=== PATIENT | female | born 1965 | race Caucasian/White ===

== ENCOUNTER 2017-09-19 12:16 | Outpatient (CLI) | payer OTHER ==
[2017-09-19 13:12] LABS: Hemoglobin 13.7 g/dL (12.0-16.0); Mean Corpuscular HGB CONC 33.3 g/dL (32.0-36.0); Mean Corpuscular Hemoglobin 30.2 pg (27.0-31.0); Mean Corpuscular Volume 90.7 fl (81.0-99.0); Mean Platelet Volume 7.3 fL (7.4-10.4); Platelet Count 347 thou/uL (130-400); RBC Distribution Width 12.6 % (11.5-14.5); Red Blood Cell (RBC) Count 4.54 mill/uL (4.20-5.40); White Blood Cell (WBC) Count 6.2 thou/uL (4.8-10.8)
[2017-09-19 13:17] LABS: BHCG - Serum Negative (NEGATIVE); Pregs Control Background? CLEAR/WHITE (CLR/WHITE); Pregs Control Bar Appear? YES (CONTROL BAR)
== END 2017-09-19 12:17 | disposition home or self-care (01) ==
LOC: LABBT 12:16
PROVIDERS: ATTEND Obstetrics & Gynecology
DX: Z01.812 Encounter for preprocedural laboratory examination (principal); D25.9 Leiomyoma of uterus, unspecified; N92.0 Excessive and frequent menstruation with regular cycle; R10.31 Right lower quadrant pain
CPT/HCPCS: 84703; 85027; 86850; 86900; 86901

== ENCOUNTER 2017-09-24 05:47 | Inpatient (IN) | payer OTHER ==
[2017-09-19 12:27] VITALS: BMI 27.9
--- NOTE | 2017-09-21 21:11 | HP ---
REASON FOR ADMISSION: Menorrhagia and fibroids, status post endometrial ablation. SCHEDULED PROCEDURE: Total laparoscopic hysterectomy with right salpingo-oophorectomy and left salpi ngectomy. HISTORY OF PRESENT ILLNESS: Ms. 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 She has had an endometrial ablation in the past and has persistent bleeding and menorrha yulia as well as pain from her fibroids. Her fibroids enlarged to the point where they are pushing on her bladder and causing discomfort with intercourse. She desires definitive surgical management. Jose brooks also has a long history of right lower quadrant pain and desires prophylactic oophorectomy on the r ight. 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 PAST MEDICAL HISTORY: Denies. PAST SURGICAL HISTORY: Ablation. ALLERGIES: Denies. MEDICATIONS: Indomethacin. SOCIAL HISTORY: Denies tobacco, alcohol, and IV drug abuse. FAMILY HISTORY: Noncontributory. REVIEW OF SYSTEMS: Noncontributory. PHYSICAL EXAMINATION: GENERAL: White female in no acute distress. VITAL SIGNS: 5 feet 6, 170, BMI 27, blood pressure 130/82. HEENT: Within normal limits. LUNGS: Clear to auscultation bilaterally. HEART: Regular rhythm. BREASTS: No masses bilaterally. ABDOMEN: Soft, nontender, no rebound or guarding. PELVIC: Vulva without lesions. Vagina without discharge. Cervix parous. Uterus 14 weeks size with fundal fibroids on exam. Adnexa without masses being able to be appreciated. LABORATORY STUDIES: Ultrasound reveals a uterus measuring 14 x 4 x 9.9 x 8 cm with fundal fibroids m easuring 7 and 6 cm respectively and endometrial thickness of 6 mm, normal size right and left adnexa without free fluid. IMPRESSION: Persistent dysmenorrhea and menorrhagia, status post endometrial ablation on multiple le iomyoma uteri. PLAN: Discussed with patient options. The patient strongly desires laparoscopic hysterectomy. Risk and benefits of morselization was discussed with patient. We will plan on proceeding with total lap aroscopic hysterectomy with right salpingo-oophorectomy. Plan on placing the specimen into an abdomi nal retrieval bag and pulling against the abdomen at the level of a Pfannenstiel incision and making in approximately 2-3 cm incision and morcellating the uterus and fibroids out through that incision. The patient understands the possible need to proceed to abdominal procedure because of size and bulk iness of the uterus as well as the regular risks of surgery including bleeding, infection, and damage to pelvic organs. We will administer appropriate antibiotic and DVT prophylaxis. Anticipate 22-kira r observation status.
[2017-09-24] MEDS ORDERED: CEFAZOLIN/Water 2 GM/20 ML SYRINGE ONE (06:11)
[2017-09-24] MEDS ORDERED: Fentanyl 100 MCG/2 ML VIAL ONE ×2 (06:48→10:39)
[2017-09-24] MEDS ORDERED: HYDROmorphone 0.5 MG/0.5 ML SYRINGE ONE (06:48)
[2017-09-24] MEDS ORDERED: Midazolam HCl 2 mg/2 ml Vial ONE (06:48)
[2017-09-24] MEDS ORDERED: Bupivacaine/Epinephrine 0.25% 30 ML VIAL ONE (07:04)
[2017-09-24] MEDS ORDERED: Promethazine HCl 25 MG/ML VIAL IM PRN ×2 (11:17→11:48)
[2017-09-24] MEDS ORDERED: Ondansetron HCl/PF 4 MG/2 ML Vial IVP PRN ×2 (11:17→11:48)
[2017-09-24] MEDS ORDERED: Promethazine HCl 25 MG/ML VIAL SLOW IVP PRN (11:17)
[2017-09-24] MEDS ORDERED: Morphine 4 MG/ML Carpuject SLOW IVP PRN ×2 (11:48→12:10)
[2017-09-24] MEDS ORDERED: Simethicone Chewable 80 MG TAB PO PRN (11:48)
[2017-09-24] MEDS ORDERED: Zolpidem Tartrate 5 MG TAB PO PRN (11:48)
[2017-09-24] MEDS ORDERED: Ketorolac Tromethamine 30 MG/ML VIAL IVP SCH (12:00)
[2017-09-24] MEDS ORDERED: Acetaminophen 1,000 MG in Premix Bag 1 BAG IVPB SCH (12:00)
--- NOTE | 2017-09-24 12:49 | OP ---
DATE OF OPERATION: 09/24/2017 PREOPERATIVE DIAGNOSES: Large uterine fibroids, dysmenorrhea, pelvic pain, right lower quadrant. POSTOPERATIVE DIAGNOSIS: Large uterine fibroids, dysmenorrhea, pelvic pain, right lower quadrant, pl us right ovarian endometriosis. PROCEDURE: Total laparoscopic hysterectomy, right salpingo-oophorectomy, left salpingectomy and ext ra-abdominal morselization. SURGEON: Chad Vilchis M.D. WASH HOUSE SUPERVISOR: Dionicio Hernandez D.O. ANESTHESIA: General endotracheal. ESTIMATED BLOOD LOSS: 200 mL. MEDICATIONS: Two grams Ancef preincision. DVT PROPHYLAXIS: SCDs. OPERATIVE FINDINGS: 1. Approximately 14-16 week sized bulky uterus with 2 large fibroids in the fundus side by side. 2. Mild to moderate amount of endometriosis on the surface of the right ovary. 3. Normal appearing left ovary. 4. Hemostasis with clear urine. 5. Counts correct at the end of the procedure. DISPOSITION: To the recovery room in good condition. DESCRIPTION OF OPERATIVE PROCEDURE: After obtaining proper informed consent, the patient was taken t o the operating room where general endotracheal anesthesia was achieved without difficulty. The allie ent was prepped and draped in dorsal lithotomy position in [place] stirrups. Side hand speculum placed in vagina. The cervix was identified and grasped with tooth tenaculum. Uterus sounded to 10 cm. R NAHID manipulator with a 3.5 vaginal package line relief operator and 8 cm occluding obturator was placed without difficu lty. Garcia catheter was placed. Speculum and tenaculum removed. Religion Department Chair changed his gloves and tu rned his attention to the abdominal portion of the procedure. Five mL of Marcaine was injected at th e superior aspect of the umbilicus and a 12 mm skin incision made. Veress needle placed inside the a bdominal cavity. Confirmation of entry into the peritoneal cavity via saline drop test. Insufflatio n carried out with carbon dioxide to a max pressure of 15, volume approximately 3.5 liters. A 12 mm trocar was then placed and confirmation of entry into the peritoneal cavity without trauma to underly ing viscera was noted with the laparoscopic camera. Right and left lateral trocars for da Parvez robo t 8 mm were placed under direct visualization and an 11 mm mechanic assistant port in the right upper quadrant was placed. The patient was placed in steep Trendelenburg position and the da Parvez robot was docke d with monopolar scissors in the right hand and fenestrated bipolar forceps in the left. Uterus was noted to be large and bulky, but was able to be manipulated around for care. On the patient's right, the infundibulopelvic ligament was identified and noted to be well away from the sidewall and coagul ated at the level of the ovary. After the IP was coagulated and transected, coagulation transected a nd was taken to the broad and the round, and then to the cardinal ligaments down to just above the le kellie of the internal cervical os. The uterus was mobilized anteriorly. The vesicouterine peritoneum was identified. The vaginal package line relief operator on the JENIFFER was identified and incised sharply and dissected off the lower uterine segment, cervix, and upper vagina. Coagulation and transection were carried ou t at the level of the uterine vessels on the patient's right, marked varicosities secondary to the p atpati's large fibroids were noted which rendered some difficulty in this; however, it was accomplish ed, sustained midline against the cervix well away from the pelvic side wall and the ureter. After t his was accomplished, attention was turned to the patient's left where the identical procedure was ca rried out except on this side, the fallopian tube was identified, the mesosalpinx coagulated and monroy sected and excised and the tube pulled out through the mechanic assistant port. Then, the utero-ovarian ligam ent was coagulated and transected, carried to the broad, the round, and the cardinals down to just ab ove the level of the internal cervical os. Completion of the incision to the vesicouterine peritoneu m anteriorly was carried out. Skeletonization of the uterine vessels carried out, again marked varic osities were encountered on this side. Good hemostasis was achieved, maintaining midline discipline and staying away from the lateral sidewall and ureter. Posteriorly, the vaginal package line relief operator was ident ified and the peritoneum incised sharply. Posteriorly, the midline at 6 o'clock and extended from 6 to 3 and from 6 to 9. Anteriorly, good dissection of the bladder off the upper vagina was identified , the incision was made which was carried down into the vagina at 12 o'clock and was extended from 12 to 9, 12 to 3, 6 to 9 and 6 to 3, achieving hemostasis with bipolar coagulation as these pedicles we re taken down. Good hemostasis was noted along the margins of the cuff after removal of the cervix f rom the upper vagina. The specimen was large enough that it could not be passed out through the vagi na. The JENIFFER manipulator obturator balloon was taken down and the specimen was pulled off of this an d placed in the upper abdomen for future retrieval. The applied medical morselization retrieval bag was placed in the vagina, tied in the middle with a silk suture and then the vagina occluded to maint ain pneumoperitoneum. Using a Stratafix 2-0 PDS the vagina was closed in a running continuous manner from right to left, achieving good hemostasis. The bladder was back filled to identify its location and closure was careful to stay away from this. Good hemostasis was noted after closure and the ped icles were irrigated and noted be hemostatic. FloSeal was applied upon all surfaces and good hemosta sis was noted. At this point in time, the closure suture on the morselization bag was cut in the mid dle and removed. The uterine specimen was placed into the retrieval bag and a [address] d suprapubically in the midline 2 cm above the symphysis pubis. The retrieval straining on the clement lization bag was pulled out through this trocar. The da Parvez instruments were then removed. The da Parvez undocked and laparoscopic trocars except for the 12 mm suprapubic were all removed. The patie nt was flattened and the incision at the level of the 12 mm trocar was extended to approximately 4 cm in greatest length through the skin and carried down to the fascia which was incised sharply latera lly with curved Kurtz scissors enlarging the incision. The retrieval string and the mouth of the mors elization bag were pulled out through this incision and a small South O was placed inside of it. Th e applied medical morselization bag was then pulled out through the middle of the South O and rolled down to facilitate morselization of the uterus. A hard plastic protective ring was placed inside of this and the uterus was grasped and morcellated out in approximately 270 degree rotating technique u sing an 11 blade and taking care to avoid trauma to the underlying viscera. This procedure was zachariah ed out for approximately 45-50 minutes, completely removing the specimen, including right tube and ov kimberly as well as the uterus. The retrieval bag was pulled out. The South O was left inside. Inspect ion of the pelvis was carried out. Suction irrigation and blood from the surgical procedure were suc tioned out and inspection of the surgical field through the 4 cm incision was carried out which revea led good hemostasis. No pooling of blood, no evidence of active hemorrhage. The South 0 retractor was removed. The fascia reapproximated at the level of the 4 cm incision using a 0 Vicryl on a CT2 n eedle, UR-5 needle was used to close the fascia at the level of the umbilical trocar. Skin was reapp roximated x5 using subcuticular 4-0 Monocryl and Dermabond. Inspection of the vagina afterwards reve aled the cuff to be intact and no active bleeding. Urine was clear. The patient was awakened, extub ated, and taken to the recovery room in good condition.
[2017-09-24] MEDS: Sodium Chloride 0.9% 1,000 ML IV SCH ×2 (13:10→20:53)
[2017-09-24] MEDS ORDERED: Ketorolac Tromethamine 30 MG/ML VIAL ONE (14:07)
[2017-09-24] MEDS ORDERED: Propofol 200 MG/20 ML VIAL ONE (14:07)
[2017-09-24] MEDS ORDERED: Metoclopramide HCl 10 MG/2 ML VIAL ONE (14:07)
[2017-09-24] MEDS ORDERED: Dexamethasone 20 MG/5 ML VIAL ONE (14:07)
[2017-09-24] MEDS ORDERED: Labetalol 100 MG/20 ML MDV ONE (14:07)
[2017-09-24] MEDS ORDERED: Lidocaine 1% PF 5 ML VIAL ONE (14:07)
[2017-09-24] MEDS ORDERED: Ondansetron HCl/PF 4 MG/2 ML Vial ONE (14:07)
[2017-09-24] MEDS ORDERED: diphenhydrAMINE 50 MG/ML VIAL ONE (14:07)
[2017-09-24] MEDS: Ketorolac Tromethamine 30 MG/ML VIAL IVP SCH ×2 (14:27→21:18)
[2017-09-24] MEDS: Morphine 4 MG/ML Carpuject SLOW IVP PRN ×2 (14:28→16:24)
[2017-09-24] MEDS ORDERED: HYDROcodone/Acetaminophen 5/325 mg Tablet PO PRN (15:56)
[2017-09-24] MEDS: HYDROcodone/Acetaminophen 5/325 mg Tablet PO PRN ×2 (17:01→21:21)
[2017-09-25] MEDS: Ketorolac Tromethamine 30 MG/ML VIAL IVP SCH ×2 (02:56→07:56)
[2017-09-25] MEDS: HYDROcodone/Acetaminophen 5/325 mg Tablet PO PRN ×2 (03:31→08:04)
[2017-09-25] MEDS: Sodium Chloride 0.9% 1,000 ML IV SCH ×2 (04:53→07:51)
[2017-09-25 06:00] LABS: Hemoglobin 11.3 g/dL (12.0-16.0); Mean Corpuscular HGB CONC 33.6 g/dL (32.0-36.0); Mean Corpuscular Hemoglobin 30.6 pg (27.0-31.0); Mean Corpuscular Volume 91.2 fl (81.0-99.0); Mean Platelet Volume 7.5 fL (7.4-10.4); Platelet Count 286 thou/uL (130-400); RBC Distribution Width 12.9 % (11.5-14.5); Red Blood Cell (RBC) Count 3.71 mill/uL (4.20-5.40); White Blood Cell (WBC) Count 10.9 thou/uL (4.8-10.8)
[2017-09-25 07:58] VITALS: BP 118/71; TEMP 98.5
--- NOTE | 2017-09-25 13:50 | DIS ---
DATE OF ADMISSION: 09/24/2017 DATE OF DISCHARGE: 09/25/2017 SUMMARY OF HOSPITAL COURSE: Ms. Maddox was admitted with an approximately 15-16 week size uterus with multiple leiomyoma, dysmenorrhea and menorrhagia. She underwent a total laparoscopic hysterect lottie, right salpingo-oophorectomy, left salpingectomy with extra-abdominal morcellation with an approx imately 200-300 mL estimated blood loss. She had an unremarkable postoperative course with good urin e output, afebrile with stable vital signs, hematocrit 33% postoperative day #01. Abdomen was soft a nd nontender without rebound or guarding. Her incisions were well healed. Her perineum was dry and her extremities without clubbing, cyanosis or edema. She will be discharged home on [place] and Motrin and will follow up at [facility] in 6 weeks. Pathology pending.
== END 2017-09-25 10:00 | disposition home or self-care (01) | DRG 743 ==
LOC: SDC 05:47 → 3SE 10:54 → EDSTATUS 12:30
PROVIDERS: ADMIT Obstetrics & Gynecology; ATTEND Obstetrics & Gynecology
PROC: 0UT94ZZ Resection of Uterus, Percutaneous Endoscopic Approach (ICD-10-PCS; principal; 2017-09-24)
PROC: 0UT04ZZ Resection of Right Ovary, Percutaneous Endoscopic Approach (ICD-10-PCS; 2017-09-24)
PROC: 0UT74ZZ Resection of Bilateral Fallopian Tubes, Percutaneous Endoscopic Approach (ICD-10-PCS; 2017-09-24)
PROC: 8E0W4CZ Robotic Assisted Procedure of Trunk Region, Percutaneous Endoscopic Approach (ICD-10-PCS; 2017-09-24)
DX: D25.9 Leiomyoma of uterus, unspecified (principal); N80.1 Endometriosis of ovary; N94.6 Dysmenorrhea, unspecified
CPT/HCPCS: 36415; 85027; 88307; A4216; J0131; J1100; J1170; J1200; J1885; J2001; J2250; J2270; J2405; J2704; J2765; J3010

== ENCOUNTER 2017-10-02 12:19 | Inpatient (IN) | payer OTHER ==
[2017-10-02 13:05] VITALS: BMI 25.5
[2017-10-02] MEDS ORDERED: Lactated Ringer's 500 ML IV SCH (13:15)
[2017-10-02] MEDS ORDERED: Morphine 5 MG/ML SYRINGE SLOW IVP PRN ×2 (13:32)
[2017-10-02] MEDS ORDERED: Ondansetron HCl/PF 4 MG/2 ML Vial IVP PRN (13:33)
[2017-10-02] MEDS ORDERED: Acetaminophen 325 MG TAB PO PRN (13:33)
[2017-10-02 13:38] LABS: Hemoglobin 12.6 g/dL (12.0-16.0); Mean Corpuscular HGB CONC 33.1 g/dL (32.0-36.0); Mean Corpuscular Volume 90.7 fl (81.0-99.0); Mean Platelet Volume 7.1 fL (7.4-10.4); Platelet Count 513 thou/uL (130-400); RBC Distribution Width 12.8 % (11.5-14.5); Red Blood Cell (RBC) Count 4.19 mill/uL (4.20-5.40); White Blood Cell (WBC) Count 11.8 thou/uL (4.8-10.8)
[2017-10-02] MEDS ORDERED: Iopamidol 370 76% 100 ML VIAL ONE (13:46)
[2017-10-02] MEDS: Lactated Ringer's 1,000 ML IV SCH ×2 (13:46→19:52)
[2017-10-02 13:52] LABS: Band 6 % (5-11); Lymphocytes 13 % (21-51); MDiff Complete? YES; Monocytes 5 % (0-10); Neutrophil 75 % (42-75); PLT Morphology Comment Appears Increased; RBC Morphology Normal; Reactive Lymphocytes 1 % (0-10)
[2017-10-02 14:02] LABS: ALT (SGPT) 43 U/L (8-55); AST (SGOT) 19 U/L (5-34); Albumin 4.3 g/dL (3.5-5.0); Alkaline Phosphatase 263 U/L (40-150); Anion Gap 20 mmol/L (10-20); BUN (Urea Nitrogen) 12 mg/dL (7.0-18.7); Bilirubin, Total 0.4 mg/dL (0.2-1.2); Calc. Creatinine Clearance 105 mL/min (70-130); Calcium 10.5 mg/dL (7.8-10.44); Carbon Dioxide 19 mmol/L (22-29); Chloride 102 mmol/L (98-107); Estimated GFR-MDRD 81; Globulin 4.4 g/dL (2.4-3.5); Glucose 87 mg/dL (70-105); Potassium 3.7 mmol/L (3.5-5.1); Protein, Total 8.7 g/dL (6.0-8.3); Sodium 137 mmol/L (136-145)
[2017-10-02 14:23] LABS: Bilirubin Small (Negative); Blood, Urine Trace (Negative); Glucose, Urine (Dipstick) Negative (Negative); Leukocyte Negative (Negative); Nitrite Negative (Negative); Protein, Urine (Dipstick) Negative (Neg-Trace); Specific Gravity, Urine 1.025 (1.005-1.030); Urobilinogen 0.2 mg/dL (0.2-1.0); pH, Urine 6.5 (5.0-9.0)
[2017-10-02 14:25] LABS: Clarity Clear (Clear)
[2017-10-02 14:40] LABS: Bacteria/HPF None Seen HPF (None Seen); RBC/HPF 0-3 HPF (0-3); Squamous Epithelial 0-3 HPF (0-3); WBC/HPF 0-3 HPF (0-3)
[2017-10-02 14:41] LABS: Hyaline Casts/LPF 0-3 HYALINE CAST LPF (0-3 Hyaline)
--- NOTE | 2017-10-02 16:08 | CT ---
CT ABDOMEN WITH AND WITHOUT CONTRAST CT PELVIS WITH AND WITHOUT CONTRAST: (CT cystogram) 10/02/17 HISTORY: 51-year-old female status post hysterectomy on 09/25/17. Urinary retention. The findings were discussed by telephone with Dr. Chad Vilchis by telephone at the time of this dict ation. TECHNIQUE: IV contrast: 100 mL Isovue 370. Noncontrast scan of entire abdomen and pelvis. After IV contrast injection, 90 second delayed, followed by four minute delayed, scans of entire abdo men and pelvis. Bladder drained via existing Garcia catheter, followed by post drainage scan of the pelvis. Coronal reconstructions of the 90 second delayed scan. FINDINGS: The uterus is absent. Extensive fat stranding representing edema throughout the pelvic cavity. There is a very irregularly shaped collection of fluid and gas located centrally within the pelvic cavity, with irregular, enhancing adams. The dimensions are difficult to measure because of its very irregula r shape. It is roughly 7 cm transverse x 2 cm anteroposterior x 2.5 cm craniocaudal. There are anteri or and posterior extensions of this collection at its left side. There are adjacent much smaller renny ections of gas and fluid, some of which represent intraluminal contents within bowel loops, but some of which questionably represent additional extraluminal small extraluminal collections. There is an approximately 4.5 x 2 x 1.5 cm intermediate density fluid collection within the vaginal c uff, with surrounding enhancing adams. There is a Garcia catheter within an initially decompressed urinary bladder. On the four minute delaye d images, the bladder partially fills with iodinated contrast. There is no evidence of extravasation of iodinated contrast seen on the four minute delayed images or in the post drainage images. There is an approximately 0.5 x 0.3 cm calculus at the lower pole of the left kidney adjacent to whic h there is a lateral renal parenchymal defect representing scar from previous insult. There is no acute, currently active pyelonephritis. There is no hydroureteronephrosis. No calculus in the right kidney. The liver, abdominal aorta, right kidney, adrenals, pancreas, and spleen, are norm al. No small bowel dilation. The small bowel and rectosigmoid colon within the pelvic cavity are diff icult to evaluate because of the edematous changes throughout the pelvic cavity as described above. L brian bases are clear. Anterior to the inferior portion of the rectus abdominis muscle, in the subcutaneous fat, there is an approximately 2.5 x 1.5 x 4.5 cm collection without enhancing adams, but with surrounding fat strand ing, and containing some gas. This is consistent with the area of induration at the site of surgical trocar insertion, and is consistent with a hematoma. It is uncertain whether or not this is infected. IMPRESSION: 1. Status post recent hysterectomy. 2. Moderate sized, very irregularly shaped fluid collection centrally within the pelvic cavity, containing moderate amount of gas. This may represent postsurgical hematoma, but there is a possibili ty that this could represent an abscess. 3. Much smaller collection in the anterior subcutaneous fat superficial to the lower portion of the rectus abdominis muscle, probably representing a superficial hematoma, which may or may not be in fected, probably in the region of surgical trocar insertion. 4. Although the bladder adams are diffusely thickened, there is no evidence of leakage; no evide nce of iatrogenic traumatic injury to the urinary bladder or distal ureters. 5. Incidental finding of left renal lower pole calculus with adjacent renal parenchymal scar. Code CR POS: [id number]
[2017-10-02] MEDS: HYDROcodone/Acetaminophen 5/325 mg Tablet PO PRN ×2 (16:40→19:55)
--- NOTE | 2017-10-02 16:56 | HP ---
DATE OF ADMISSION: 10/02/2017 TIME OF ADMISSION: Approximately 1300 hours. REASON FOR ADMISSION: Fever, possible UTI, possible postoperative complication, approximately 8 days status post total laparoscopic hysterectomy. HISTORY OF PRESENT ILLNESS: Ms. Maddox is a 51-year-old 3, para 2, AB 1, who was admitte d on 09/24/2017 for a TLH, RSO, left salpingectomy, and morselization of the uterus. She had a surge ry that was somewhat difficult secondary to the bulky nature of the fundus of her uterus as well as l arge vessels supplying her fibroids with the uterines on both sides. However, midline integrity was felt to have been maintained with the surgical procedure throughout and that she had uncomplicated 24 -hour observation in the hospital postoperatively. She was discharged home and reports feeling good until approximately 4-5 days postoperatively, when she began to have fevers, chills, and vaginal pain . She also reports that she cannot hold her urine well, although she is able to hold her urine and i s voiding. She went to the emergency room in [place] and was seen and noted to have leukocytes with nitrites in her urine, white count of 15,000 with a left shift and was started on antibiotics. I am uncertain of exactly what antibiotics at this time. She reported on Saturday to my office checked on h er (2 days ago that she felt much better on the antibiotics); however, yesterday she began having fev er again as well. She was scheduled to come to the office this morning; however, I called the patien t and discussed with her. She lives over 2 hours away in [place] and we decided to go ahead and a dmit her for further evaluation as I am concerned about the possibility of urinary tract injury, saba cially thermal injury with this timing of the onset of this issue. 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 Negative Pap in 2015. Endometrial ablation in 2013. PAST MEDICAL HISTORY: None. PAST SURGICAL HISTORY: Ablation and hysterectomy. ALLERGIES: Denies. MEDICATIONS: [place]. SOCIAL HISTORY: Denies tobacco, alcohol, or drug abuse. FAMILY HISTORY: Noncontributory. REVIEW OF SYSTEMS: Noncontributory. PHYSICAL EXAMINATION: GENERAL: White female with moderate pain, but not in acute distress at this time. VITAL SIGNS: Temperature 99.0, pulse 84, respirations 20, blood pressure 154/90. HEENT: Within normal limits. LUNGS: Clear to auscultation bilaterally. HEART: Regular rhythm. BREASTS: No masses bilaterally. ABDOMEN: Soft and nontender without rebound or guarding, except in the area of her suprapubic remova l of fibroids site where there is some induration and erythema at the superior aspect. Bowel sounds are noted throughout. The other trocars appeared normal. The patient seems to have possibly mild CV A tenderness on her right. PELVIC: Deferred. EXTREMITIES: Without clubbing, cyanosis or edema. LABORATORY AND X-RAY FINDINGS: White count is 11.8 with hematocrit of 38 (postoperative day #1 was 3 4), platelet count is elevated at 513, neutrophil are 75%, 6% bands, 13% lymphocytes. Comprehensive metabolic panel is remarkable only for an elevated alkaline phosphate at 263, elevated total serum pr otein at 8.7, upper limits of normal at 8.3 and albumin globulin ratio of 1.0. Globulin is elevated at 4.4, upper limits of normal at 3.5. Urinalysis from cath reveals 40+ ketones, trace blood, small bilirubin, negative nitrates, negative leukocyte esterase, negative wbc's, negative protein, specific gravity of 1.025 and a pH of 6.5. IMAGING: CT scan is pending at this time. Both a CT urogram and cystogram were ordered. IMPRESSION AND PLAN: Fever of uncertain origin approximately 8 days post-surgical. Initial consider ation was worry for urinary tract injury. Current laboratory values seemed to be less suggestive of this, although CT scan results are pending. The possibility of cellulitis, pelvic abscess, influenza , or other cause of fever and malaise need to be considered. The patient had minimal blood loss and no significant active bleeding noted at the time of closure and does not have low enough hematocrit s uggested the patient has continued intraabdominal hemorrhage. We will follow up CT results, I have s tarted the patient on Levaquin assuming urinary tract source of the infection, we will consult Urolog y if CT findings indicate a possible urologic injury, and otherwise will further evaluate laboratory and CT results. Urine cultures and blood cultures have been sent.
[2017-10-02] MEDS ORDERED: metroNIDAZOLE 500 MG in Premix Bag 1 BAG IVPB SCH (18:00)
[2017-10-02] MEDS: Piperacillin/Tazobactam 3.375 GM in Sodium Chloride 0.9% 100 ML IVPB SCH (18:26)
--- NOTE | 2017-10-02 18:39 | PRG ---
DATE OF SERVICE: 10/02/2017 TIME OF SERVICE: 1710 hours. SUBJECTIVE: A CT scan was reviewed by myself and discussed with Dr. Pack. The patient's lab work and vitals have been reviewed. It is evident that the patient has a small irregular area that is most c onsistent with an early abscess forming in a hematoma or collection of fluid in the pelvis posthyster ectomy along with perhaps an early subcutaneous cellulitis/abscess at the level of her suprapubic inc ision site. She also incidentally has a left kidney stone associated with scarring that is evident o f its longstanding presence there. It is unlikely the kidney stone is contributing to her current is sues. Discussed with the patient and her options including expectant management with IV anti biotics versus surgically addressing and IV antibiotics. Radiology does not think they can reach thi s abscess percutaneously. We will proceed with exploration, I&D at the level of her suprapubic site and then intra-abdominal pelvic washout tomorrow at noon. We will allow the patient to eat this even ing. We will continue Garcia drainage. We will change antibiotics from Levaquin to Zosyn and Flagyl. The patient and are understanding of this. We will initiate SCDs for DVT prophylaxis.
[2017-10-02] MEDS: metroNIDAZOLE 500 MG in Premix Bag 1 BAG IVPB SCH (19:50)
[2017-10-02] MEDS: Ibuprofen 600 MG TAB PO PRN (19:55)
[2017-10-02] MEDS: Zolpidem Tartrate 5 MG TAB PO PRN (20:10)
[2017-10-03] MEDS: Piperacillin/Tazobactam 3.375 GM in Sodium Chloride 0.9% 100 ML IVPB SCH ×4 (00:47→17:24)
[2017-10-03] MEDS: metroNIDAZOLE 500 MG in Premix Bag 1 BAG IVPB SCH ×3 (05:18→19:52)
[2017-10-03] MEDS: Lactated Ringer's 1,000 ML IV SCH ×3 (06:51→17:24)
[2017-10-03] MEDS ORDERED: ALPRAZolam 0.5 MG TAB PO ONE (08:15)
[2017-10-03] MEDS ORDERED: Midazolam HCl 2 mg/2 ml Vial ONE (11:37)
[2017-10-03] MEDS ORDERED: Fentanyl 100 MCG/2 ML VIAL ONE ×3 (11:49→13:28)
[2017-10-03] MEDS ORDERED: Promethazine HCl 25 MG/ML VIAL IM PRN (12:57)
[2017-10-03] MEDS ORDERED: Promethazine HCl 25 MG/ML VIAL SLOW IVP PRN (12:57)
[2017-10-03] MEDS ORDERED: Ondansetron HCl/PF 4 MG/2 ML Vial IVP PRN (12:57)
[2017-10-03] MEDS ORDERED: HYDROmorphone 0.5 MG/0.5 ML SYRINGE ONE ×2 (13:58→14:18)
[2017-10-03] MEDS ORDERED: Glycopyrrolate 0.2 MG/ML 5 ML SYRINGE ONE (16:26)
[2017-10-03] MEDS ORDERED: Dexamethasone 20 MG/5 ML VIAL ONE (16:26)
[2017-10-03] MEDS ORDERED: Ketorolac Tromethamine 30 MG/ML VIAL ONE (16:26)
[2017-10-03] MEDS ORDERED: PROPOFOL 200 MG/20 ML VIAL ONE (16:26)
[2017-10-03] MEDS ORDERED: Ondansetron HCl/PF 4 MG/2 ML Vial ONE (16:26)
[2017-10-03] MEDS ORDERED: Lidocaine 1% PF 5 ML VIAL ONE (16:26)
[2017-10-03] MEDS: Morphine 5 MG/ML SYRINGE SLOW IVP PRN ×2 (17:21→19:06)
--- NOTE | 2017-10-03 19:42 | OP ---
DATE OF PROCEDURE: 10/03/2017 PREOPERATIVE DIAGNOSES: Suprapubic midline incision cellulitis with hematoma and pelvic abscess/carlton carlee, 8-day status post total laparoscopic hysterectomy. POSTOPERATIVE DIAGNOSES: Suprapubic midline incision cellulitis with hematoma and pelvic abscess/hem atoma, 8-day status post total laparoscopic hysterectomy. PROCEDURE PERFORMED: Exploration with I&D of subcutaneous abscess and pelvic washout of abscess. SURGEON: Chad Vilchis M.D. SOFTWARE DEVELOPER INTERN: Kristi Fuentes M.D. ANESTHESIA: Tyson John M.D. ESTIMATED BLOOD LOSS: 50 mL intraoperatively. COMPLICATIONS: None. DRAINS: Garcia to gravity. DVT PROPHYLAXIS: SCDs. CULTURES: Subcutaneous abscess x1 and pelvic abscess x1. FINDINGS: 1. Small 1-2 cm diameter pocket of old blood with purulent appearance, deep subcutaneous just above the suprapubic incision above the fascia cultured. 2. Mildly loculated pelvic fluid collection with serosanguineous appearance with some purulence evac uated. 3. Hemostasis with correct counts at the end of the procedure. DISPOSITION: To the recovery room in good condition. DESCRIPTION OF OPERATIVE PROCEDURE: After obtaining proper informed consent, the patient was taken t o the operating room. Garcia catheter was in situ. The patient was prepped and draped and Dermabond was removed prior to prep from the skin at the level of the suprapubic incision. This incision was o pened up. Of note, it was noted to be well healing and was difficult to open, it was opened up along its entirety and taken down to the level of fascia just above the fascia. Superiorly, there was a p ocket of dark fluid with purulent appearance to it. This was cultured and evacuated. The fascial cl osure from the previous surgery was identified with Vicryl suture and the suture removed. Fascia ope yousuf and grasped with Oschner clamps on each edge. The peritoneum was identified, elevated and incise d sharply entering the peritoneal cavity and taking care to avoid trauma to the underlying viscera. A small South O retractor was placed inside. Glucose And Syrup Weigher placed the patient in slight Trendelenburg po sition and I used fingers to push the bowel back out of the way. Loculations of fluid collection of serosanguineous fluid with slight odor and purulent appearance was noted in the pelvis, this was brok en up and irrigation carried out with approximately 3 liters of saline after obtaining a culture from this area. The left adnexa were identified and noted to be without evidence of gross infection or s ignificant inflammation. No evidence of bowel injury was noted and at no point in time was any fecal material noted during the suction irrigation or inspection cycle. After this was carried out, no ev idence of active bleeding in the pelvis was identified. At this point in time, the South O retracto r was removed. Consideration was made towards placement of ADRIANA drain in the pelvis; however, decision was made because of very small size of the incision and the difficulty to access, and quick clearing of the fluid without evidence of extensive infection, to not place a ADRIANA drain. The South O retract or was removed and the rectus was inspected and noted to be dry. The fascia was reapproximated in ru nning continuous 0 PDS suture. The subcutaneous tissue was irrigated and rendered hemostatic using B ovie cautery. Because of the infection that have been present in this area, decision was made to not close the subcu and also not to use a subcuticular stitch with Dermabond. Instead, sunny were use d with intervening Telfa gianluca placed with a 4x4, sponge dressing placed after this. Urine was noted to be clear afterwards. The patient was awakened, extubated, and taken to recovery room in good con dition. We will continue Zosyn and Flagyl as previously prescribed for the patient.
[2017-10-03] MEDS: HYDROcodone/Acetaminophen 5/325 mg Tablet PO PRN ×2 (19:50)
[2017-10-03] MEDS: Zolpidem Tartrate 5 MG TAB PO PRN (21:49)
[2017-10-04] MEDS: HYDROcodone/Acetaminophen 5/325 mg Tablet PO PRN ×5 (00:01→20:45)
[2017-10-04] MEDS: Piperacillin/Tazobactam 3.375 GM in Sodium Chloride 0.9% 100 ML IVPB SCH ×4 (00:03→18:23)
[2017-10-04] MEDS: metroNIDAZOLE 500 MG in Premix Bag 1 BAG IVPB SCH ×3 (04:00→20:43)
[2017-10-04] MEDS: Lactated Ringer's 1,000 ML IV SCH ×3 (05:49→23:41)
[2017-10-04] MEDS ORDERED: Docusate 100 MG CAP PO SCH (12:00)
--- NOTE | 2017-10-04 15:53 | PRG ---
DATE OF SERVICE: 10/04/2017 TIME OF SERVICE: 1140 hours. SUBJECTIVE: The patient reports her pain is much improved. She feels much better, has a good appeti te and is voiding with ease. Vitals reveal a T-max of 99.6, pulse 68, respirations 16, blood pressur e 107/68. The patient's urine output with Garcia prior to removal was 2500 mL. It has now been remov ed and she is voiding with ease. She reports no vaginal discharge. PHYSICAL EXAMINATION: GENERAL: Patient is resting comfortably in no apparent distress. ABDOMEN: Soft and nontender, no rebound or guarding. Active bowel sounds. Bandage is in situ which are still in place in her suprapubic incision. There is no increase in the size of the serosanguine ous fluid area on the 4x4's from greater than 12 hours ago. Perineum is dry. EXTREMITIES: Without clubbing, cyanosis, or edema. LABORATORY DATA: Both incisional and abdominal cultures are preliminary rare to moderate gram-negati ve rods, which is consistent with suspected bacterial milieu with her post hysterectomy abscess. IMPRESSION: Status post incisional and pelvic hematoma/abscess approximately 1-1/2 weeks post total laparoscopic hysterectomy. PLAN: Continue Zosyn and Flagyl, initiate Colace for constipation. We will remove Telfa gianluca from incision tomorrow. We will recheck CBC and metabolic panel tomorrow.
[2017-10-04] MEDS: Docusate 100 MG CAP PO SCH (20:44)
[2017-10-04] MEDS: Zolpidem Tartrate 5 MG TAB PO PRN (22:11)
[2017-10-05] MEDS: Piperacillin/Tazobactam 3.375 GM in Sodium Chloride 0.9% 100 ML IVPB SCH ×4 (00:09→18:09)
[2017-10-05] MEDS: Lactated Ringer's 1,000 ML IV SCH ×2 (00:11→17:49)
[2017-10-05] MEDS: HYDROcodone/Acetaminophen 5/325 mg Tablet PO PRN ×4 (01:14→20:16)
[2017-10-05] MEDS: metroNIDAZOLE 500 MG in Premix Bag 1 BAG IVPB SCH ×3 (04:25→20:28)
[2017-10-05 05:42] LABS: #Basophils 0.1 thou/uL (0.0-0.2); #Eosinphils 0.1 thou/uL (0.0-0.7); #Lymphocytes 1.6 thou/uL (1.20-3.40); #Monocytes 0.5 thou/uL (0.11-0.59); #Neutrophils 8.4 thou/uL (1.40-6.50); %Basophils 0.7 % (0.0-1.0); %Eosinophils 1.4 % (0.0-10.0); %Lymphocytes 14.9 % (21.0-51.0); %Neutrophils 78.1 % (42.0-75.0); Hemoglobin 9.9 g/dL (12.0-16.0); Mean Corpuscular HGB CONC 32.4 g/dL (32.0-36.0); Mean Corpuscular Hemoglobin 29.5 pg (27.0-31.0); Mean Corpuscular Volume 91.1 fl (81.0-99.0); Mean Platelet Volume 6.4 fL (7.4-10.4); Platelet Count 527 thou/uL (130-400); RBC Distribution Width 12.6 % (11.5-14.5); Red Blood Cell (RBC) Count 3.34 mill/uL (4.20-5.40); White Blood Cell (WBC) Count 10.7 thou/uL (4.8-10.8)
[2017-10-05 05:47] LABS: Anion Gap 12 mmol/L (10-20); BUN (Urea Nitrogen) 7 mg/dL (7.0-18.7); Calc. Creatinine Clearance 126 mL/min (70-130); Calcium 8.9 mg/dL (7.8-10.44); Carbon Dioxide 27 mmol/L (22-29); Chloride 102 mmol/L (98-107); Estimated GFR-MDRD Greater than 90; Glucose 94 mg/dL (70-105); Sodium 137 mmol/L (136-145)
[2017-10-05] MEDS: Docusate 100 MG CAP PO SCH ×2 (12:48→20:17)
[2017-10-05] MEDS: Ibuprofen 600 MG TAB PO PRN (13:09)
[2017-10-05] MEDS ORDERED: cloNIDine 0.1 MG TAB PO PRN (14:14)
[2017-10-05] MEDS ORDERED: ALPRAZolam 0.25 MG TAB PO PRN (14:21)
[2017-10-05] MEDS: Morphine 5 MG/ML SYRINGE SLOW IVP PRN (17:10)
[2017-10-05] MEDS ORDERED: Lidocaine 1% (PF) 30 ML VIAL FS SCH (17:15)
[2017-10-05] MEDS: Zolpidem Tartrate 5 MG TAB PO PRN (20:16)
[2017-10-06] MEDS: Piperacillin/Tazobactam 3.375 GM in Sodium Chloride 0.9% 100 ML IVPB SCH ×4 (00:46→17:59)
[2017-10-06] MEDS: HYDROcodone/Acetaminophen 5/325 mg Tablet PO PRN ×4 (00:46→22:00)
[2017-10-06] MEDS: Ibuprofen 600 MG TAB PO PRN (00:46)
--- NOTE | 2017-10-06 00:46 | PRG ---
DATE OF SERVICE: 10/05/2017 TIME OF SERVICE: 1415 hours. SUBJECTIVE: The patient states that she feels about the same as she did yesterday. She is somewhat anxious because of recent fever. She denies nausea, vomiting or increased abdominal pain. PHYSICAL EXAMINATION: VITAL SIGNS: The patient had a T-max of 100.1, now 99.5 without Tylenol. Vital signs are otherwise unremarkable except from occasionally elevated systolic blood pressures. GENERAL: White female in no acute distress. ABDOMEN: Soft and nontender, bowel sounds are positive. Her incision is intact and dry. PELVIC: The gianluca were examined and there were no purulent, but were also noted to be dry and so the y were removed without difficulty. No purulent material or bleeding was noted after removal of the w icks. The balloon was intact. EXTREMITIES: Without clubbing, cyanosis or edema. LABORATORY STUDIES: Patient's white count is down to 10.7 from 11.0 on admission, 78% neutrophils, w hich is essentially stable with admission, lymphocytes at 15%, which is essentially stable as well. She continues to have her reactive thrombocytosis. Her hematocrit is 30.4% with hemoglobin of 9.9. Base met is within normal limits with a normal creatinine, potassium and sodium. Glucoses within nor mal limits as well. Microbiology: The patient with pelvic abscess and abdominal wound both grew E. coli along with non-hemolytic strep. The E. coli is sensitive to current antibiotic therapy, piperac illin/tazobactam. Anaerobics are pending. IMPRESSION: Status post pelvic abscess with washout post total laparoscopic hysterectomy. First fev er during hospitalization approximately 48 hours post pelvic washout with appropriate antibiotic cove rage with both Zosyn and Flagyl. PLAN: Continue antibiotics. We will administer both Xanax for anxiety and clonidine p.r.n. for bloo d pressure. We will continue antibiotics and anticipate a repeat CT scan on the 10/07/2017 if the pa tient remains afebrile prior to discharge to confirm resolution of abscess.
[2017-10-06] MEDS: metroNIDAZOLE 500 MG in Premix Bag 1 BAG IVPB SCH ×2 (04:10→13:36)
[2017-10-06] MEDS: Lactated Ringer's 1,000 ML IV SCH ×3 (04:11→13:34)
[2017-10-06] MEDS ORDERED: Hydrocortisone 1% Cream 1.5 GM Packet TOP PRN (08:59)
[2017-10-06] MEDS: Docusate 100 MG CAP PO SCH ×2 (09:41→22:03)
[2017-10-06] MEDS ORDERED: Nebivolol HCl 5 MG TAB PO SCH (13:15)
--- NOTE | 2017-10-06 15:51 | PRG ---
DATE OF SERVICE: 10/06/2017 TIME OF SERVICE: 12:50 SUBJECTIVE: The patient reports that she feels much better today. Small episode of bleeding after c oughing after we removed the yesterday. It was addressed by Dr. Schmitz, OB Hospitalist, on ca ll with pressure and Steri-Strips. The patient states that she has had no more bleeding, has a good appetite and only a small amount of vaginal discharge. OBJECTIVE: VITAL SIGNS: T-max has been 100.1, and the patient has remained afebrile since noon on 10/05/2017. Her blood pressure remains elevated and currently is 180/89. ABDOMEN: Soft and nontender without rebound or guarding. The suprapubic incision is dry. There is moderate induration around it without significant erythema and no fluctuance. EXTREMITIES: Her extremities without clubbing, cyanosis, or edema. LABORATORY DATA: Culture is essentially unchanged since yesterday with anaerobic pending. IMPRESSION: The patient is doing well now approximately 12 days post-hysterectomy and 3 days post-pe lvic washout with postoperative infection and abscess, on Zosyn and Flagyl. PLAN: 1. Continue antibiotics. 2. Begin Bystolic 5 mg p.o. daily. The patient reports that she has been having mildly elevated blo od pressures even antecedent to this illness at home, and has a strong family history of elevated blo od pressure. 3. Consider likely we will go ahead and repeat CT scan without contrast on 10/07/2017, to re assess change in pelvis status post washout and antibiotics compared to 4 days ago. 4. Consideration for discharge home on 10/07/2017 if the patient remains afebrile. Likely discharge medications would include Augmentin and Flagyl to complete a 14-day course.
[2017-10-06] MEDS ORDERED: diphenhydrAMINE 25 MG CAP PO PRN (19:49)
[2017-10-06] MEDS: Zolpidem Tartrate 5 MG TAB PO PRN (22:00)
[2017-10-07] MEDS: Piperacillin/Tazobactam 3.375 GM in Sodium Chloride 0.9% 100 ML IVPB SCH ×2 (00:02→06:09)
[2017-10-07] MEDS: metroNIDAZOLE 500 MG in Premix Bag 1 BAG IVPB SCH ×2 (00:02→09:13)
[2017-10-07] MEDS: Lactated Ringer's 1,000 ML IV SCH ×2 (00:03→06:43)
[2017-10-07] MEDS: HYDROcodone/Acetaminophen 5/325 mg Tablet PO PRN ×2 (04:07→11:09)
[2017-10-07 07:59] VITALS: BP 141/81
[2017-10-07] MEDS: Docusate 100 MG CAP PO SCH (08:30)
[2017-10-07] MEDS ORDERED: Nebivolol HCl 5 MG TAB PO SCH (09:00)
--- NOTE | 2017-10-07 11:36 | CT ---
CT ABDOMEN AND PELVIS WITH CONTRAST: HISTORY: Urinary retention. Prior bladder abscess. The patient had a hysterectomy and surgery to remove flui d. COMPARISON: 10/02/2017 TECHNIQUE: Multiple contiguous axial images were obtained in a CT of the abdomen and pelvis with contrast. Chantal nal reformats were performed. FINDINGS: Skin sunny are seen in the lower abdominal wall from interval surgery. There are stranding changes in the abdominal wall with a few foci of air from recent surgery. There are foci of free air in the abdomen from recent surgery. There is a persistent fluid collection in the pelvis, containing foci of air. This measures approximately 2.5 x 2.6 x 7 cm in size. This is slightly smaller than the mahsa or examination. This fluid collection is in the surgical bed, between the urinary bladder and the re ctum. The large and small bowel are normal in caliber. The liver, gallbladder, right kidney, adrenal gland s, spleen, and pancreas are unremarkable. There is a nonobstructing cortical calcification in the lo wer pole of the left kidney. There are foci of air in the nondependent urinary bladder, which may be from recent instrumentation. An infection is also a possibility. No abdominal or pelvic lymphadenopathy is seen. Degenerative changes are seen in the spine. The vis ualized inferior thorax is unremarkable. IMPRESSION: 1. Smaller but persistent fluid collection in the surgical bed. 2. Air within the urinary bladder may be from recent instrumentation versus a urinary tract infectio n. 3. Nonobstructing cortical left renal calcification. POS: FREDDIE
[2017-10-07 11:55] VITALS: TEMP 98
[2017-10-07] MEDS ORDERED: Iopamidol 370 76% 100 ML VIAL ONE (12:17)
--- NOTE | 2017-10-07 15:37 | DIS ---
DATE OF ADMISSION: 10/02/2017 DATE OF DISCHARGE: 10/07/2017 SUMMARY OF HOSPITAL COURSE: Ms. Maddox was admitted on the approximately 9 days status post total laparoscopic hysterectomy with right salpingo-oophorectomy, left salpingectomy with da Parvez r obot and in-bag morcellation of enlarged uterus. Upon admission, initial concerns were for a urinary tract injury. CT studies revealed no evidence of such; however, the patient was noted to have a pel thomas abscess as well as subcutaneous tissue abscess at the level of her suprapubic site of morcellatio n. She was taken to the operating room on the and exploratory laparotomy with I&D of the abdomi nal abscess as well as washout of the pelvic abscess was carried out at that time. In the intervenin g time afterwards, the patient responded well. Her white count decreased from 11.8 upon admission to 10.7 with a normal differential on the . Base met remained within normal limits. Cultures of t he abdominal abscesses revealed E. coli sensitive to both Augmentin and Zosyn and resistant to fluoro quinolones. Anaerobic were pending. The patient had a T-max in the postoperative period of 100.1 on 10/05/2017 at noon, since then she has been approximately 48 hours afebrile. Of note, the patient h ad moderately elevated systolic blood pressures, which she reported she was experiencing preoperative ly in the last few months. She was started on Bystolic 5 mg and had a decent response of her blood p ressure to this. Repeat CT scan on the revealed a decrease in the size of the fluid collection in the pelvis. It was felt that the majority of this fluid was left over from the pelvic washout. T he patient had a slight vaginal discharge, which is likely a small amount of drainage to the cuff, wh ich is really the only area that access to this area of the fluid would be accessible. No other abno rmalities were noted. The abdominal incision had been reclosed with spaced out sunny and gianluca, wh ich were removed two days postoperatively. The patient will be discharged home on Bystolic 5 mg p.o. q.a.m., Augmentin 875 b.i.d. and Flagyl 500 t.i.d. x10 days. She was also given a prescription for [place] 5. She will be scheduled for followup in 9 days at [facility] [place] with Dr. Chad Vilchis. The patient was instructed to amb ulate, and to take her temperatures 3 times a day. She is to call my office if she has a temperature greater than or equal to 100.2 or has increasing pelvic pain, myalgias, fatigue, etc.
== END 2017-10-07 12:01 | disposition home or self-care (01) | DRG 856 ==
LOC: 3SE 12:19
PROVIDERS: ADMIT Obstetrics & Gynecology; ATTEND Obstetrics & Gynecology
PROC: 0W9G0ZZ Drainage of Peritoneal Cavity, Open Approach (ICD-10-PCS; principal; 2017-10-03)
PROC: 0J980ZZ Drainage of Abdomen Subcutaneous Tissue and Fascia, Open Approach (ICD-10-PCS; 2017-10-03)
DX: T81.4XXA Infection following a procedure, initial encounter (principal); K65.1 Peritoneal abscess; L02.211 Cutaneous abscess of abdominal wall; L76.32 Postprocedural hematoma of skin and subcutaneous tissue following other procedure; L03.311 Cellulitis of abdominal wall; B96.20 Unspecified Escherichia coli [E. coli] as the cause of diseases classified elsewhere; Z90.710 Acquired absence of both cervix and uterus; Z90.79 Acquired absence of other genital organ(s); Z90.721 Acquired absence of ovaries, unilateral; F41.9 Anxiety disorder, unspecified; R03.0 Elevated blood-pressure reading, without diagnosis of hypertension
CPT/HCPCS: 36415; 74177; 74178; 80048; 80053; 81001; 85007; 85025; 85027; 87040; 87070; 87076; 87077; 87086; 87149; 87186; 87205; 87631; J2270; A4216; J1100; J1170; J1885; J1956; J2001; J2250; J2405; J2543; J2704; J3010; J7050